=== PATIENT | female | born 1960 | race Caucasian/White ===

== ENCOUNTER 2017-03-12 02:33 | Emergency (ER) | payer MEDICAID ==
[~2017-03-12] VITALS: Ht 152.4 cm; Wt 130.0 kg
[2017-03-12] MEDS ORDERED: MAGNESIUM/ALUMINUM HYDROXIDE/SIMETHICONE 30ML UDC PO STA (06:17)
[2017-03-12] MEDS ORDERED: SODIUM CHLORIDE 0.9% 1,000 ML IV ONE (06:17)
[2017-03-12] MEDS ORDERED: VISCOUS LIDOCAINE 2% 15 ML UDC PO STA (06:17)
[2017-03-12 06:40] LABS: BASOPHILS % 0.7 % (0.0-2.0); EOSINOPHILS % 2.9 % (0.0-5.0); HEMATOCRIT. 37.5 % (36.0-48.0); HEMOGLOBIN. 12.3 g/dL (12.0-16.0); LYMPHOCYTES % 33.1 % (20.0-50.0); MEAN CORPUSCULAR HEMOGLOBIN 27.1 pg (28.0-32.0); MEAN CORPUSCULAR VOLUME 82.6 fL (81.0-99.0); MONOCYTES % 7.1 % (2.0-8.0); NEUTROPHILS % 56.2 % (40.0-76.0); PLATELET 222 x1000/uL (130-400); RED BLOOD CELL COUNT 4.54 mill/uL (4.2-5.4); RED CELL DISTRIBUTION WIDTH 14.3 % (11.6-14.6)
[2017-03-12 06:47] LABS: INR 1.1; PROTHROMBIN TIME 11.2 sec
[2017-03-12 06:59] LABS: CARBON DIOXIDE 27 mEq/L (21-32); CHLORIDE 104 mEq/L (98-107); TROPONIN I < 0.02 ng/mL (0.00-0.04)
[2017-03-12 09:03] LABS: CLARITY URINE CLEAR (CLEAR); COLOR URINE YELLOW (YELLOW); GLUCOSE URINE NEGATIVE (NEGATIVE); KETONES URINE NEGATIVE (NEGATIVE); LEUKOCYTE ESTERASE URINE NEGATIVE (NEGATIVE); NITRITE URINE NEGATIVE (NEGATIVE); OCCULT BLOOD URINE NEGATIVE (NEGATIVE); PH URINE 5.5 (4.5-8.0); PROTEIN URINE TRACE (NEGATIVE); SPECIFIC GRAVITY URINE 1.008 (1.005-1.030); UROBILINOGEN URINE 0.2 E.U./dL (0.2-1.0)
[2017-03-12 09:23] VITALS: BP 168/78
== END 2017-03-12 09:29 | disposition home or self-care (01) ==
LOC: ER 08:22
DX: E11.65 Type 2 diabetes mellitus with hyperglycemia (principal); J45.909 Unspecified asthma, uncomplicated; E66.9 Obesity, unspecified; R10.11 Right upper quadrant pain; Z79.4 Long term (current) use of insulin
CPT/HCPCS: 36415; 71010; 80053; 81001; 83605; 83690; 84484; 85025; 85610; 99285; J7030; Z7610

== ENCOUNTER 2017-10-13 00:03 | Emergency (ER) | payer MEDICAID ==
[~2017-10-13] VITALS: Ht 152.4 cm; Wt 130.0 kg
[2017-10-13 02:02] LABS: CLARITY URINE CLOUDY (CLEAR); COLOR URINE YELLOW (YELLOW); KETONES URINE TRACE (NEGATIVE); LEUKOCYTE ESTERASE URINE 1+ (NEGATIVE); NITRITE URINE NEGATIVE (NEGATIVE); OCCULT BLOOD URINE NEGATIVE (NEGATIVE); PROTEIN URINE TRACE (NEGATIVE); SPECIFIC GRAVITY URINE 1.023 (1.005-1.030); UROBILINOGEN URINE 0.2 E.U./dL (0.2-1.0)
[2017-10-13 04:28] LABS: BASOPHILS % 0.5 % (0.0-2.0); EOSINOPHILS % 3.6 % (0.0-5.0); HEMATOCRIT. 39.2 % (36.0-48.0); LYMPHOCYTES % 40.8 % (20.0-50.0); MEAN CORPUSCULAR HEMOGLOBIN 27.8 pg (28.0-32.0); MEAN CORPUSCULAR VOLUME 83.9 fL (81.0-99.0); MEAN PLATELET VOLUME 9.5 fl (7.4-10.4); MONOCYTES % 7.1 % (2.0-8.0); PLATELET 231 x1000/uL (130-400); RED BLOOD CELL COUNT 4.67 mill/uL (4.2-5.4); RED CELL DISTRIBUTION WIDTH 14.4 % (11.6-14.6)
[2017-10-13] MEDS: KETOROLAC 30MG/ML VIAL IV ONE (04:35)
[2017-10-13] MEDS: ONDANSETRON HCL 4MG/2ML VIAL IV ONE (04:35)
[2017-10-13] MEDS: SODIUM CHLORIDE 0.9% 1,000 ML IV ONE (04:35)
[2017-10-13 04:39] LABS: PROTHROMBIN TIME 10.7 sec (9.4-11.6)
[2017-10-13 04:56] LABS: CARBON DIOXIDE 28 mEq/L (21-32); CHLORIDE 103 mEq/L (98-107)
[2017-10-13] MEDS: CEFTRIAXONE 1 G PREMIX 50 ML IV NR (06:09)
[2017-10-13 09:15] VITALS: BP 137/66
== END 2017-10-13 09:41 | disposition home or self-care (01) ==
LOC: ER 00:03
DX: N39.0 Urinary tract infection, site not specified (principal); K59.00 Constipation, unspecified; J45.909 Unspecified asthma, uncomplicated; E11.9 Type 2 diabetes mellitus without complications; E66.9 Obesity, unspecified; R79.1 Abnormal coagulation profile
CPT/HCPCS: 36415; 74176; 80053; 81001; 83690; 85025; 85610; 93005; 96361; 96365; 96375; 99285; J0696; J1885; J2405; J7030

== ENCOUNTER 2017-12-04 18:30 | Emergency (ER) | payer MEDICAID ==
[~2017-12-04] VITALS: Ht 152.4 cm; Wt 131.0 kg
[2017-12-04] MEDS ORDERED: IPRATROPIUM/ALBUTEROL 0.5-3(2.5)MG/3ML NEB HHN ONE (19:15)
[2017-12-04 19:31] LABS: CLARITY URINE CLEAR (CLEAR); COLOR URINE YELLOW (YELLOW); KETONES URINE NEGATIVE (NEGATIVE); LEUKOCYTE ESTERASE URINE NEGATIVE (NEGATIVE); NITRITE URINE NEGATIVE (NEGATIVE); OCCULT BLOOD URINE NEGATIVE (NEGATIVE); PH URINE 7.5 (4.5-8.0); PROTEIN URINE NEGATIVE (NEGATIVE); SPECIFIC GRAVITY URINE 1.013 (1.005-1.030); UROBILINOGEN URINE 0.2 E.U./dL (0.2-1.0)
[2017-12-04 21:14] VITALS: BP 104/74
== END 2017-12-04 21:15 | disposition home or self-care (01) ==
LOC: ER 18:43
DX: J06.9 Acute upper respiratory infection, unspecified (principal); R30.0 Dysuria; I10 Essential (primary) hypertension; E11.9 Type 2 diabetes mellitus without complications; J45.909 Unspecified asthma, uncomplicated
CPT/HCPCS: 81003; 87804; 94640; 99284; J7620

== ENCOUNTER 2018-02-26 22:26 | Emergency (ER) | payer MEDICAID ==
[~2018-02-26] VITALS: Ht 160 cm; Wt 94.0 kg
[2018-02-27] MEDS ORDERED: SODIUM CHLORIDE 0.9% 1,000 ML IV NR (04:30)
[2018-02-27] MEDS ORDERED: KETOROLAC 30MG/ML VIAL IV NR (04:30)
[2018-02-27 04:31] LABS: CLARITY URINE CLEAR (CLEAR); COLOR URINE YELLOW (YELLOW); KETONES URINE NEGATIVE (NEGATIVE); LEUKOCYTE ESTERASE URINE NEGATIVE (NEGATIVE); NITRITE URINE NEGATIVE (NEGATIVE); OCCULT BLOOD URINE NEGATIVE (NEGATIVE); PROTEIN URINE NEGATIVE (NEGATIVE); SPECIFIC GRAVITY URINE 1.037 (1.005-1.030); UROBILINOGEN URINE 0.2 E.U./dL (0.2-1.0)
[2018-02-27 05:37] LABS: BASOPHILS % 0.6 % (0.0-2.0); EOSINOPHILS % 2.3 % (0.0-5.0); HEMATOCRIT. 38.3 % (36.0-48.0); HEMOGLOBIN. 12.8 g/dL (12.0-16.0); LYMPHOCYTES % 32.5 % (20.0-50.0); MEAN CORPUSCULAR HEMOGLOBIN 28.1 pg (28.0-32.0); MEAN CORPUSCULAR VOLUME 84.2 fL (81.0-99.0); MEAN PLATELET VOLUME 10.2 fl (7.4-10.4); MONOCYTES % 7.1 % (2.0-8.0); NEUTROPHILS % 57.5 % (40.0-76.0); PLATELET 202 x1000/uL (130-400); RED BLOOD CELL COUNT 4.54 mill/uL (4.2-5.4); RED CELL DISTRIBUTION WIDTH 13.9 % (11.6-14.6)
[2018-02-27 05:41] LABS: CHLORIDE 97 mEq/L (98-107)
[2018-02-27 05:52] LABS: INR 1.1; PROTHROMBIN TIME 11.6 sec (9.4-11.6)
[2018-02-27 08:21] VITALS: BP 123/58
== END 2018-02-27 08:23 | disposition home or self-care (01) ==
LOC: ER 02-27 02:39
DX: K52.9 Noninfective gastroenteritis and colitis, unspecified (principal); E11.65 Type 2 diabetes mellitus with hyperglycemia; I10 Essential (primary) hypertension; J45.909 Unspecified asthma, uncomplicated; Z79.4 Long term (current) use of insulin
CPT/HCPCS: 36415; 80053; 81003; 82962; 83690; 85025; 85610; 96361; 96374; 99284; J1885; J7030; Z7610

== ENCOUNTER 2018-08-24 12:21 | Emergency (ER) | payer MEDICAID ==
[~2018-08-24] VITALS: Ht 152.4 cm; Wt 127.2 kg
[2018-08-24] MEDS ORDERED: ONDANSETRON HCL 4MG/2ML INJ IV STA (12:53)
[2018-08-24] MEDS ORDERED: SODIUM CHLORIDE 0.9% 1,000 ML IV ONE (12:53)
[2018-08-24 14:25] LABS: BASOPHILS % 0.6 % (0.0-2.0); EOSINOPHILS % 3.3 % (0.0-5.0); HEMATOCRIT. 43.1 % (36.0-48.0); HEMOGLOBIN. 14.2 g/dL (12.0-16.0); LYMPHOCYTES % 37.7 % (20.0-50.0); MEAN CORPUSCULAR HEMOGLOBIN 28.5 pg (28.0-32.0); MEAN CORPUSCULAR VOLUME 86.4 fL (81.0-99.0); MEAN PLATELET VOLUME 10.3 fl (7.4-10.4); MONOCYTES % 5.7 % (2.0-8.0); NEUTROPHILS % 52.7 % (40.0-76.0); PLATELET 201 x1000/uL (130-400); RED CELL DISTRIBUTION WIDTH 14.6 % (11.6-14.6)
[2018-08-24 14:26] LABS: CHLORIDE 104 mEq/L (98-107)
[2018-08-24 14:30] LABS: INR 1.1; PROTHROMBIN TIME 10.6 sec (9.1-11.1)
[2018-08-24] MEDS ORDERED: MECLIZINE 25MG TABLET PO ONE (15:30)
[2018-08-24 16:39] VITALS: BP 121/69
== END 2018-08-24 17:06 | disposition home or self-care (01) ==
LOC: ER 12:40
DX: R42 Dizziness and giddiness (principal); M26.601 Right temporomandibular joint disorder, unspecified; I10 Essential (primary) hypertension; J45.909 Unspecified asthma, uncomplicated; R94.31 Abnormal electrocardiogram [ECG] [EKG]; E11.65 Type 2 diabetes mellitus with hyperglycemia; E66.9 Obesity, unspecified; Z68.43 Body mass index [BMI] 50.0-59.9, adult
CPT/HCPCS: 36415; 70450; 71045; 80048; 83735; 83880; 84484; 85025; 85610; 85730; 93005; 96361; 96374; 99284; J2405; J7030; J8597

== ENCOUNTER 2019-05-20 23:29 | Emergency (ER) | payer MEDICAID ==
[~2019-05-20] VITALS: Ht 152.4 cm; Wt 132.0 kg
[2019-05-21 02:24] LABS: BASOPHILS % 0.9 % (0.0-2.0); EOSINOPHILS % 2.3 % (0.0-5.0); HEMATOCRIT. 41.3 % (36.0-48.0); HEMOGLOBIN. 13.8 g/dL (12.0-16.0); LYMPHOCYTES % 43.9 % (20.0-50.0); MEAN CORPUSCULAR HEMOGLOBIN 28.5 pg (28.0-32.0); MEAN PLATELET VOLUME 9.2 fl (7.4-10.4); MONOCYTES % 4.9 % (2.0-8.0); PLATELET 239 x1000/uL (130-400); RED BLOOD CELL COUNT 4.85 mill/uL (4.2-5.4); RED CELL DISTRIBUTION WIDTH 14.4 % (11.6-14.6)
[2019-05-21 02:30] LABS: CHLORIDE 100 mEq/L (98-107)
[2019-05-21 02:34] LABS: ETHANOL BLOOD < 10 mg/dL
[2019-05-21 02:38] LABS: CLARITY URINE CLEAR (CLEAR); COLOR URINE DARK YELLOW (YELLOW); KETONES URINE NEGATIVE (NEGATIVE); LEUKOCYTE ESTERASE URINE TRACE (NEGATIVE); NITRITE URINE POSITIVE (NEGATIVE); OCCULT BLOOD URINE 1+ (NEGATIVE); PH URINE 6.5 (4.5-8.0); PROTEIN URINE NEGATIVE (NEGATIVE); SPECIFIC GRAVITY URINE 1.015 (1.005-1.030)
[2019-05-21 02:56] LABS: *AMPHETAMINES SCREEN URINE NEGATIVE (NEGATIVE); *BARBITURATES SCREEN URINE NEGATIVE (NEGATIVE); *BENZODIAZEPINES SCREEN URINE NEGATIVE (NEGATIVE); *COCAINE SCREEN URINE NEGATIVE (NEGATIVE); CANNABINOID URINE SCREEN NEGATIVE (NEGATIVE); METHADONE URINE SCREEN NEGATIVE (NEGATIVE); OPIATES URINE SCREEN NEGATIVE (NEGATIVE); PHENCYCLIDINE URINE SCREEN NEGATIVE (NEGATIVE)
[2019-05-21 05:21] VITALS: BP 134/53
== END 2019-05-21 06:02 | disposition home or self-care (01) ==
LOC: ER 23:52
DX: N39.0 Urinary tract infection, site not specified (principal); R00.2 Palpitations; I10 Essential (primary) hypertension; E11.9 Type 2 diabetes mellitus without complications; J45.909 Unspecified asthma, uncomplicated
CPT/HCPCS: 36415; 71045; 80305; 80320; 81003; 83880; 84484; 93005; 99284; G0480

== ENCOUNTER 2020-12-13 18:15 | Emergency (ER) | payer MEDICAID ==
[~2020-12-13] VITALS: Ht 152.4 cm; Wt 132.0 kg
[2020-12-13] MEDS ORDERED: ACETAMINOPHEN WITH CODEINE 300/30MG TABLET PO ONE (20:15)
[2020-12-13] MEDS ORDERED: KETOROLAC 60MG/2ML VIAL IM ONE (20:15)
[2020-12-13 20:37] VITALS: BP 171/73
[2020-12-13 20:41] LABS: CLARITY URINE CLOUDY (CLEAR); COLOR URINE YELLOW (YELLOW); KETONES URINE TRACE (NEGATIVE); LEUKOCYTE ESTERASE URINE 1+ (NEGATIVE); NITRITE URINE POSITIVE (NEGATIVE); OCCULT BLOOD URINE 2+ (NEGATIVE); PH URINE 5.5 (4.5-8.0); PROTEIN URINE 1+ (NEGATIVE); SPECIFIC GRAVITY URINE 1.033 (1.005-1.030)
[2020-12-13] MEDS ORDERED: IBUP-2030 PO (20:43)
[2020-12-13] MEDS ORDERED: NITR100C PO (20:43)
== END 2020-12-13 21:28 | disposition home or self-care (01) ==
LOC: ER 18:15
DX: M54.9 Dorsalgia, unspecified (principal); N39.0 Urinary tract infection, site not specified; E11.9 Type 2 diabetes mellitus without complications; I10 Essential (primary) hypertension; J45.909 Unspecified asthma, uncomplicated
CPT/HCPCS: 81003; 96372; 99283; J1885

== ENCOUNTER 2021-04-16 03:35 | Emergency (ER) | payer MEDICAID ==
[~2021-04-16] VITALS: Ht 152.4 cm; Wt 132.0 kg
[~2021-04-16 03:35] MED LIST: IBUP-2030 PO; NITR100C PO
[2021-04-16 03:48] VITALS: BP 153/80
[2021-04-16] MEDS ORDERED: IBUPROFEN 600MG TABLET PO STA (04:59)
[2021-04-16] MEDS ORDERED: IBUP-2030 PO (06:11)
[2021-04-16] MEDS ORDERED: CYCL5TAB PO (06:11)
== END 2021-04-16 06:35 | disposition home or self-care (01) ==
LOC: ER 03:35
DX: R07.89 Other chest pain (principal); M25.511 Pain in right shoulder; M54.9 Dorsalgia, unspecified; I10 Essential (primary) hypertension; E11.9 Type 2 diabetes mellitus without complications; J45.909 Unspecified asthma, uncomplicated; V43.62XA Car passenger injured in collision with other type car in traffic accident, initial encounter; Y93.89 Activity, other specified; Y92.411 Interstate highway as the place of occurrence of the external cause
CPT/HCPCS: 71046; 73030; 93005; 99284